=== PATIENT | female | born 1955 | race African-American/Black ===

== ENCOUNTER 2018-03-19 09:03 | Inpatient (IN) | payer MEDICARE ==
[2018-03-19] VITALS (8 sets, daily range): BP systolic 112–132; BP diastolic 55–71; PULSE 59–69; RESP 14–20; TEMP 97.3–98.5; O2SAT 95–100
[~2018-03-19] VITALS: Ht 165.1 cm; Wt 90.7 kg
[2018-03-19] MEDS ORDERED: IODIXANOL 320 MG/ML 10 ML VIAL (for Rad CT) IVCONTRAST ONE (09:10)
[2018-03-19 09:18] LABS: AUTOMATED NEUTROPHIL # 2.1 TH/MM3 (1.8-7.7); BASOPHIL # 0.1 TH/MM3 (0-0.2); BASOPHIL % 1.1 % (0.0-2.0); EOSINOPHIL % 0.3 % (0.0-4.0); HEMATOCRIT 39.3 % (35.0-46.0); LYMPH % 45.6 % (9.0-44.0); LYMPHOCYTE # 2.3 TH/MM3 (1.0-4.8); MEAN CELL VOLUME 93.5 FL (80.0-100.0); MEAN CORPUSCULAR HGB CONC 33.2 % (32.0-36.0); MEAN PLATELET VOLUME 7.2 FL (7.0-11.0); MONO % 10.7 % (0.0-8.0); MONOCYTE # 0.5 TH/MM3 (0-0.9); NEUT % 42.3 % (16.0-70.0); PLATELET COUNT 232 TH/MM3 (150-450); RED CELL DISTRIBUTION WIDTH 12.7 % (11.6-17.2)
--- NOTE | 2018-03-19 09:25 | RADRPT ---
EXAM DATE/TIME: 03/19/2018 09:10 [facility] COMPARISON: No previous studies available for comparison. INDICATIONS : Stroke alert. Aphasia. RADIATION DOSE: 56.47 CTDIvol (mGy) This report was called by Lucretia to Dr. Barkley at 9: 22 MEDICAL HISTORY : Non-responsive. SURGICAL HISTORY : Non-responsive. ENCOUNTER: Initial ACUITY: 1 day PAIN SCALE: 0/10 LOCATION: cranial TECHNIQUE: Multiple contiguous axial images were obtained of the head. Using automated exposure control and adj ustment of the mA and/or kV according to patient size, radiation dose was kept as low as reasonably a chievable to obtain optimal diagnostic quality images. DICOM format image data is available electro nically for review and comparison. FINDINGS: CEREBRUM: The ventricles are normal for age. No evidence of midline shift, mass lesion, hemorrhage or acute in farction. No extra-axial fluid collections are seen. POSTERIOR FOSSA: The cerebellum and brainstem are intact. The 4th ventricle is midline. The cerebellopontine angle i s unremarkable. EXTRACRANIAL: The visualized portion of the orbits is intact. SKULL: The calvaria is intact. No evidence of skull fracture. CONCLUSION: 1. Unremarkable exam. 2. No evidence of acute infarct, hemorrhage, mass or edema. Major Gupta MD on March 19, 2018 at 9:19 Board Certified Radiologist. This report was verified electronically.
[2018-03-19 09:41] LABS: PROTHROMBIN TIME - PATIENT 10.6 SEC (9.8-11.6)
[2018-03-19] MEDS ORDERED: ASPIRIN 325 MG TAB PO ONE (09:45)
--- NOTE | 2018-03-19 09:45 | RADRPT ---
EXAM DATE/TIME: 03/19/2018 09:10 [facility] COMPARISON: CT BRAIN W/O CONTRAST, March 19, 2018, 9:10. INDICATIONS : Stroke alert. Aphasia. IV CONTRAST: 75 cc Visipaque (iodixanol) IV RADIATION DOSE: 43.12 CTDIvol (mGy) ; Combined studies MEDICAL HISTORY : Non-responsive. SURGICAL HISTORY : Non-responsive. ENCOUNTER: Initial ACUITY: 1 day PAIN SCALE: 0/10 LOCATION: TECHNIQUE: Volumetric scanning was performed using a multi-row detector CT scanner. The data was post processed with a variety of visualization algorithms including full volume maximum intensity projection, multi -planar sliding thin slab reformation, curved planar reformation, and surface rendering techniques. Using automated exposure control and adjustment of the mA and/or kV according to patient size, radiat ion dose was kept as low as reasonably achievable to obtain optimal diagnostic quality images. DICO M format image data is available electronically for review and comparison. FINDINGS: There is excellent visualization of the major intracranial arteries out to the second-order branch ve ssels. There is no evidence for aneurysm, vessel truncation or stenosis, and no evidence for vascula r malformation. No discrete vascular occlusion to serve as target for catheter directed stroke therapy. CONCLUSION: Normal examination. Jeremy Sheldon MD on March 19, 2018 at 9:38 Board Certified Radiologist. This report was verified electronically.
[2018-03-19] MEDS ORDERED: LEVO.125 PO (09:51)
[2018-03-19] MEDS ORDERED: ASPI81CH6 CHEW (09:51)
[2018-03-19] MEDS ORDERED: MULT1TAB46 PO (09:51)
[2018-03-19] MEDS ORDERED: CALCTAB80 PO (09:51)
[2018-03-19] MEDS: SODIUM CHLOR 0.9% 1000 ML INJ 1,000 ML IV SCH ×2 (10:00→14:02)
[2018-03-19 10:01] LABS: CALCIUM 9.2 MG/DL (8.5-10.1); CHLORIDE 108 MEQ/L (98-107); SODIUM (NA) 143 MEQ/L (136-145)
[2018-03-19 10:02] LABS: BICARBONATE 31.6 MEQ/L (21.0-32.0); BLOOD UREA NITROGEN 10 MG/DL (7-18); GLUCOSE,RANDOM 85 MG/DL (74-106)
[2018-03-19 10:05] LABS: CREATININE 0.74 MG/DL (0.50-1.00); GLOMERULAR FILTRATION RATE 80 ML/MIN (>89)
--- NOTE | 2018-03-19 10:10 | PD ---
HPI Chief Complaint: Stroke Alert Time Seen by Provider: 09:07 Travel History International Travel<30 days: No Contact w/Intl Traveler<30days: No Traveled to known affect area: No History of Present Illness HPI This 62-year-old female arrives by private vehicle. She had woken up this morning and says she was okay when she got up. She let the dogs out and then went to eat and noticed that she was dropping things and was very clumsy. She called her son who went to her house immediately and picked her up and brought her to the emergency room. He says that she was weak and needed to be supported on the way here. She is not complaining of headache. Initially she is unable to talk to later she has regained her speech and is able to give some history. She has never had a stroke. She was well when she woke up this morning. She does take 81 mg of aspirin daily. She does take Synthroid. She has a history of back surgery and bilateral knee surgery. PFSH Past Medical History Thyroid Disease: Yes (Hypo- ) Tetanus Vaccination: Unknown Influenza Vaccination: Yes ?: Not Menopausal: Yes Past Surgical History Abdominal Surgery: Yes (Gastric bypass ) Hysterectomy: Yes Joint Replacement: Yes (BL knees) Other Surgery: Yes (Skin graft shoulder, thyroidectomy ) Social History Alcohol Use: Yes (Occ.) Tobacco Use: No Substance Use: No Allergies-Medications (Allergen,Severity, Reaction): Coded Allergies: No Known Drug Allergies (Verified Allergy, Severe, 03/19/18) Reported Meds & Prescriptions Reported Meds & Active Scripts Active Reported Calcium 1000 + D (Calcium Carbonate-Cholecalciferol) 1,000-800 Mg-Unit Tab 1 Tab PO DAILY Multi Vitamin Daily (Multiple Vitamin) 1 Tab Tab 1 Tab PO DAILY Aspirin Low Dose (Aspirin) 81 Mg Chew 81 Mg CHEW DAILY Synthroid (Levothyroxine Sodium) 125 Mcg Tab 125 Mcg PO DAILY Review of Systems ROS Limitations: Speech Impaired Physical Exam Narrative GENERAL: Well-developed female SKIN: Focused skin assessment warm/dry. HEAD: Atraumatic. Normocephalic. EYES: Pupils equal and round. No scleral icterus. No injection or drainage. ENT: No nasal bleeding or discharge. Mucous membranes pink and moist. NECK: Trachea midline. No JVD. CARDIOVASCULAR: Regular rate and rhythm. No murmur appreciated. RESPIRATORY: No accessory muscle use. Clear to auscultation. Breath sounds equal bilaterally. GASTROINTESTINAL: Abdomen soft, non-tender, nondistended. Hepatic and splenic margins not palpable. MUSCULOSKELETAL: No obvious deformities. No clubbing. No cyanosis. No edema. NEUROLOGICAL: Awake and alert. No obvious cranial nerve deficits. Motor grossly within normal limits. On arrival the patient has no speech. She appears to understand well but is unable to express herself at all. She does make unintelligible noises. There is question of some left-sided weakness of the extremities but this was not consistently reproducible. PSYCHIATRIC: Not testable Data Data Last Documented VS Vital Signs Date Time Temp Pulse Resp B/P (MAP) Pulse Ox O2 Delivery O2 Flow Rate FiO2 03/19/18 09:05 98.5 62 14 130/63 (85) 100 Orders Orders Cath For Specimen (03/19/18 09:09) Neuro Checks Q2HX12,Q4H (03/19/18 09:09) Nursing Bedside Swallow Assess .ONCE (03/19/18 09:09) Activity Bed Rest (03/19/18 09:09) Diet Npo (03/19/18 Breakfast) Prothrombin Time / Inr (Pt) (03/19/18 09:09) Act Partial Throm Time (Ptt) (03/19/18 09:09) Complete Blood Count With Diff (03/19/18 09:09) Basic Metabolic Panel (Bmp) (03/19/18 09:09) Fibrinogen (03/19/18 09:09) Creatine Kinase (Cpk) (03/19/18 09:09) Troponin I (03/19/18 09:09) Ua Includes Microscopic (03/19/18 09:09) Drug Screen, Random Urine (03/19/18 09:09) Type And Screen (03/19/18 09:09) Ct Brain W/O Iv Contrast(Rout) (03/19/18 ) Cta Brain W Iv Contrast W 3d (03/19/18 09:09) Cta Neck W Iv Contrast W 3d (03/19/18 09:09) Electrocardiogram (03/19/18 ) Beta Hcg (Quant/Titer) (03/19/18 09:09) Consult Neurology (03/19/18 09:09) Blood Glucose (03/19/18 09:09) Ecg Monitoring (03/19/18 09:09) Iv Access Insert/Monitor (03/19/18 09:09) NPO (03/19/18 09:09) Oximetry (03/19/18 09:09) Resp Oxygen Nc Stroke (03/19/18 ) I-Stat Profile (03/19/18 09:10) Aspirin (Aspirin) (03/19/18 09:45) (Hub Use Only)Inp Phy Cons/Ref (03/19/18 ) [place] Sedimentation Rate (03/19/18 09:50) Rapid Plasma Regin (Rpr) W Ttr (03/19/18 09:50) [place] Screen (03/19/18 09:50) Thyroid Stimulating Hormone (03/19/18 09:50) Free Thyroxine (T4) (03/19/18 09:50) Protein Electrophoresis Serum (03/19/18 09:50) Vitamin B1 (Thiamine) (03/19/18 09:50) Vitamin B12 (03/19/18 09:50) Vitamin B6 (03/19/18 09:50) Urinalysis - C+S If Indicated (03/19/18 09:50) C-Reactive Protein (Crp) (03/19/18 09:50) Methylmalonic Acid (Mma) (03/19/18 09:50) Ast (Sgot) (03/19/18 09:50) Alt (Sgpt) (03/19/18 09:50) Mri Brain W&W/O Contrast (03/19/18 09:50) Eeg Study (03/19/18 09:50) Echo 2d Comp With Doppler (03/19/18 09:50) Holter Monitor Recording (03/19/18 09:50) Quarter Doper / Telemetry ISAAC.Q8H (03/19/18 09:50) ^ Seizure Precautions (03/19/18 09:50) [place] (03/19/18 09:50) ^ Other Nursing Orders (03/19/18 09:50) Clopidogrel (Plavix) (03/19/18 10:00) Aspirin Ec (Ecotrin Ec) (03/19/18 10:00) Sodium Chlor 0.9% 1000 Ml Inj (Ns 1000 M (03/19/18 09:50) Lipid Profile (03/19/18 09:50) Drug Screen, Random Urine (03/19/18 09:50) Folate, Serum (03/19/18 09:50) Scd&Teds Bilateral/Knee High ISAAC.QSHIFT (03/19/18 09:50) Labs Laboratory Tests Test 03/19/18 09:10 White Blood Count 5.0 TH/MM3 Red Blood Count 4.20 MIL/MM3 Hemoglobin 13.0 GM/DL Bedside Hemoglobin G/DL Hematocrit 39.3 % Bedside Hematocrit % Mean Corpuscular Volume 93.5 FL Mean Corpuscular Hemoglobin 31.0 PG Mean Corpuscular Hemoglobin Concent 33.2 % Red Cell Distribution Width 12.7 % Platelet Count 232 TH/MM3 Mean Platelet Volume 7.2 FL Neutrophils (%) (Auto) 42.3 % Lymphocytes (%) (Auto) 45.6 % Monocytes (%) (Auto) 10.7 % Eosinophils (%) (Auto) 0.3 % Basophils (%) (Auto) 1.1 % Neutrophils # (Auto) 2.1 TH/MM3 Lymphocytes # (Auto) 2.3 TH/MM3 Monocytes # (Auto) 0.5 TH/MM3 Eosinophils # (Auto) 0.0 TH/MM3 Basophils # (Auto) 0.1 TH/MM3 CBC Comment DIFF FINAL Differential Comment Prothrombin Time 10.6 SEC Prothromb Time International Ratio 1.0 RATIO Activated Partial Thromboplast Time 26.8 SEC Bedside Sodium 141 MMOL/L Blood Urea Nitrogen 10 MG/DL Random Glucose 85 MG/DL Calcium Level 9.2 MG/DL Sodium Level 143 MEQ/L Potassium Level 3.9 MEQ/L Chloride Level 108 MEQ/L Carbon Dioxide Level 31.6 MEQ/L Bedside Potassium 3.9 MMOL/L Bedside Chloride 103 MMOL/L Anion Gap 3 MEQ/L Bedside Blood Urea Nitrogen 9 MG/DL Bedside Creatinine 0.8 MG/DL Bedside Glucose 80 MG/DL [facility] Medical Decision Making Medical Screen Exam Complete: Yes Emergency Medical Condition: Yes Medical Record Reviewed: Yes Differential Diagnosis Differential includes acute stroke, CVA, TIA, altered mental status Narrative Course Patient was declared a stroke alert and was taken immediately scanning or CT and CTA. CT has been read as negative. CTA of the brain is read as normal. CTA of the carotids is pending. On returning from CAT scan being the patient has regained her speech. Her speech at this time is quite fluent. She is oriented. Repeat examination does not show any deficits. It appears this may be a transient ischemic attack. Dr. Ash has come to see the patient. She has improved considerably so is not a candidate for TPA. She has been given aspirin. She will be admitted Diagnosis Primary Impression: Transient ischemic attack (TIA) Higinio Barkley MD March 19, 2018 10:10
[2018-03-19 10:16] LABS: BILIRUBIN, URINE NEG (NEG); BLOOD, URINE NEG (NEG); GLUCOSE,URINE NEG (NEG); KETONE, URINE NEG (NEG); NITRITE,URINE NEG (NEG); URINE COLOR YELLOW (YELLW/STRAW); URINE LEUKOCYTE ESTERASE NEG (NEG)
[2018-03-19 10:19] LABS: TROPONIN I LESS THAN 0.02 NG/ML (0.02-0.05)
[2018-03-19] MEDS: CLOPIDOGREL 75 MG TAB PO SCH (10:20)
--- NOTE | 2018-03-19 10:20 | RADRPT ---
EXAM DATE/TIME: 03/19/2018 09:10 [facility] COMPARISON: No previous studies available for comparison. INDICATIONS : Stroke alert. Aphasia. IV CONTRAST: 75 cc Visipaque (iodixanol) IV RADIATION DOSE: 43.12 CTDIvol (mGy) ; Combined studies MEDICAL HISTORY : Non-responsive. SURGICAL HISTORY : Non-responsive. ENCOUNTER: Initial ACUITY: 1 day PAIN SCALE: 0/10 LOCATION: neck Elevated flow velocities and ICA/CCA ratios have been found to correlate with increased degrees of vessel stenosis, calculated as percentage of diameter relative to a normal segment of distal ICA/CCA. TECHNIQUE: Volumetric scanning was performed using a multirow detector CT scanner. The data was post processed with a variety of visualization algorithms including full-volume maximum intensity projection, multip lanar sliding thin-slab reformation, curved-planar reformation, and surface-rendering techniques. Us ing automated exposure control and adjustment of the mA and/or kV according to patient size, radiatio n dose was kept as low as reasonably achievable to obtain optimal diagnostic quality images. DICOM f ormat image data is available electronically for review and comparison. FINDINGS: AORTIC ARCH: Truncus arch anatomy. Arch vessels appear widely patent. RIGHT CAROTID: The common carotid artery is intact. The carotid bulb has a normal configuration without ulceration o r narrowing. The internal carotid artery lumen is smooth without stenosis. The external carotid francesco ry is intact. LEFT CAROTID: The common carotid artery is intact. The carotid bulb has a normal configuration without ulceration or narrowing. The internal carotid artery lumen is smooth without stenosis. The external carotid ar yuni is intact. VERTEBRALS: The vertebral arteries have a symmetric diameter. No stenotic lesions are seen. CONCLUSION: Normal examination. Jeremy Sheldon MD on March 19, 2018 at 10:06 Board Certified Radiologist. This report was verified electronically.
--- NOTE | 2018-03-19 10:22 | MB ---
cc: Dragan Ash MD DATE: 03/19/2018 HISTORY OF PRESENT ILLNESS: A 62-year-old right-handed woman called as a stroke alert with a history of hypothyroidism, gastric sleeve. She does take 81 mg of aspirin every day, although not this morning and she got up around 05:30, let the dogs out, was doing well, but at about 8 o'clock this morning, she noted that she could not talk well. She felt like she was drooling on the right side of her mouth, kept dropping a plate. She came into the ER and was found to be unable to talk, just grunt, but that has improved greatly since being here. SOCIAL HISTORY: Not a smoker, occasionally has a drink, lives by herself. FAMILY HISTORY: Negative for cancer, seizure or stroke. REVIEW OF SYSTEMS: According to her and her son, no history of hypertension, diabetes, hypercholesterolemia, chest pain, palpitations, headache, VA, CABG, stent, angioplasty, AFib, Coumadin, renal, hepatic or pulmonary disease, lupus, ulcer, cancer, seizure, prior stroke. No odd smells, taste, dj vu. Not woken up, wet the bed or bit her tongue. Never been in this hospital before. PHYSICAL EXAMINATION: VITAL SIGNS: On exam, 62, 150/80, sinus rhythm. NECK: No carotid bruits. HEART: Regular rhythm. I did not detect a murmur. NEUROLOGIC: Pupils are equal. Visual ramos are full. Extraocular movements intact. There was a few beats of nystagmus looking to the right, very slight. Tongue was midline. There is no drift. She had normal strength in upper and lower extremities bilaterally including triceps, finger extensors. movements were normal. Iliopsoas tibialis anterior. DTRs are trace throughout. Toes downgoing bilaterally. Pinprick was slightly diminished on the right face, arm, and leg compared to the left, but she could discriminate dull from sharp there. She is not ataxic on [id number] or [id number]. She had normal, naming, calculations, repetition, reading. She is not currently aphasic. She follows commands well. She showed me her left thumb well. LABORATORY DATA: CBC is normal. Coags are normal. Sodium normal. Creatinine and BUN normal. CAT scan of the brain read as normal. Review of the films normal. She had a CTA of her neck and [place] of [place]. I still do not have the results called, although the report on the head CTA is normal. Preliminary review of the neck CTA, I do not see any significant carotid stenosis and internal carotid artery is a little bit tortuous bilaterally, but symmetric. Vertebral arteries appear to be a bit small bilaterally, but symmetric, basilar artery is intact. ASSESSMENT AND PLAN: Possibly a TIA, that is what it looks like here. Will put her on Plavix. Give her 325 of aspirin. Do an echo and a Holter and MRI of the brain. Some additional blood work. I will be following her with you in the hospital. She has some slight numbness on the right side. NIH stroke score of 1. She has minimal deficit markedly improving, and as such was not given TPA. MD TEMI Esposito/PRIMITIVO , 09:54 AM , 10:21 AM
[2018-03-19 10:28] LABS: SQUAMOUS EPITHELIAL CELL URINE 0-5 /hpf (0-5)
[2018-03-19] MEDS ORDERED: ACETAMINOPHEN 325 MG TAB PO PRN (10:30)
[2018-03-19] MEDS ORDERED: MAGNESIUM HYDROXIDE SUSP 30 ML CUP PO PRN (10:30)
[2018-03-19] MEDS ORDERED: NALOXONE HCL 0.4 MG/ML AMP IV PUSH PRN (10:30)
[2018-03-19] MEDS ORDERED: ONDANSETRON HCL 4 MG/2 ML VIAL IVP PRN (10:30)
[2018-03-19] MEDS ORDERED: SENNOSIDES 8.6 MG TAB PO PRN (10:30)
[2018-03-19] MEDS ORDERED: SODIUM CHLORIDE 0.9% FLUSH 10 ML FLUSH IV FLUSH PRN (10:30)
[2018-03-19] MEDS ORDERED: BISACODYL 10 MG SUPP RECTAL PRN (10:30)
[2018-03-19 10:53] LABS: ALT (GPT) 30 U/L (10-53); C-REACTIVE PROTEIN LESS THAN 0.29 MG/DL (0.00-0.30)
[2018-03-19 10:54] LABS: AST (GOT) 20 U/L (15-37)
--- NOTE | 2018-03-19 11:52 | EKG ---
Date Performed: 03/19/2018 Time Performed: 09:53:45 PTAGE: 62 years EKG: Sinus rhythm NORMAL ECG NO PREVIOUS TRACING DOCTOR: Augusto Solis Interpretating Date/Time 03/19/2018 11:51:14
[2018-03-19] MEDS: CALCIUM/VITAMIN D 250 MG/125 U TAB PO SCH (12:00)
--- NOTE | 2018-03-19 12:12 | HHI.HP ---
HPI Service [facility] Primary Care Physician Non-Staff Admission Diagnosis TRANSIENT ISCHEMIC ATTACK Diagnoses: (1) Transient ischemic attack (TIA) Chief Complaint: Slurring of speech Travel History International Travel<30 Days: No Contact w/Intl Traveler <30 Da: No Traveled to Known Affected Are: No History of Present Illness This is a pleasant 62-year-old female patient with a known medical history of thyroid disease who presented to the ED with slurring of speech and overall generally feeling "not herself". Patient states that around 8:00 this morning she was having her coffee, actually took a Motrin for complaints of left elbow arthritis aching and shortly after she noticed her speech slurred and drooling on the right side of her mouth. Patient also admits that she kept losing ability to grasp her plate and kept dropping it. Patient called her son to immediately bring her to the ED. Stroke alert was called, neurology at bedside to assess patient. CT was performed and shortly after coming back from CT all symptoms resolved. Patient denies ever having these type of symptoms before. Denies history of hypertension, diabetes or hyperlipidemia. Patient has been relatively healthy, denies any illness including fever, chills, cough, shortness of breath, headache, abdominal pain, nausea, vomiting, diarrhea, dysuria or lightheadedness or dizziness. Review of Systems Constitutional: DENIES: Diaphoretic episodes, Fever, Chills Eyes: DENIES: Blurred vision, Diplopia, Eye pain, Vision loss, Double Vision Ears, nose, mouth, throat: DENIES: Oral lesions Respiratory: DENIES: Cough, Sputum production, Shortness of breath Cardiovascular: DENIES: Chest pain, Palpitations Gastrointestinal: DENIES: Abdominal pain, Black stools, Bloody stools, Constipation, Diarrhea, Nausea, Vomiting Musculoskeletal: DENIES: Joint pain Hematologic/lymphatic: DENIES: Bruising Immunologic/allergic: DENIES: Eczema Neurologic: COMPLAINS OF: Speech Problems Psychiatric: COMPLAINS OF: Anxiety Except as stated in HPI: all other systems reviewed are Neg Past Family Social History Past Medical History Hypothyroidism Past Surgical History Gastric sleeve Hysterectomy Thyroidectomy Bilateral knee replacement Unspecified back surgery with darcie and screw placement Bilateral breast reduction Reported Medications Active Reported Calcium 1000 + D (Calcium Carbonate-Cholecalciferol) 1,000-800 Mg-Unit Tab 1 Tab PO DAILY Multi Vitamin Daily (Multiple Vitamin) 1 Tab Tab 1 Tab PO DAILY Aspirin Low Dose (Aspirin) 81 Mg Chew 81 Mg CHEW DAILY Synthroid (Levothyroxine Sodium) 125 Mcg Tab 125 Mcg PO DAILY Allergies: Coded Allergies: No Known Drug Allergies (Verified Allergy, Severe, 03/19/18) Active Ordered Medications Current Medications Medications (Trade) Dose Ordered Sig/Gogo Route Start Time Stop Time Status Last Admin (Plavix) 75 mg DAILY PO 03/19/18 10:00 03/19/18 10:20 (Ecotrin Ec) 325 mg DAILY PO 03/20/18 09:00 Sodium Chloride 1,000 ml @ 75 mls/hr [id number] IV 03/19/18 10:00 03/19/18 10:00 (NS Flush) 2 ml UNSCH PRN IV FLUSH 03/19/18 10:30 (NS Flush) 2 ml BID IV FLUSH 03/19/18 21:00 (Tylenol) 650 mg Q4H PRN PO 03/19/18 10:30 (Zofran Inj) 4 mg Q6H PRN IVP 03/19/18 10:30 (Narcan Inj) 0.4 mg UNSCH PRN IV PUSH 03/19/18 10:30 (Nancy-Colace) 1 tab BID PO 03/19/18 21:00 (Milk Of Magnesia Liq) 30 ml Q12H PRN PO 03/19/18 10:30 (Senokot) 17.2 mg Q12H PRN PO 03/19/18 10:30 (Dulcolax Supp) 10 mg DAILY PRN RECTAL 03/19/18 10:30 (Synthroid) 125 mcg DAILY@0600 PO 03/20/18 09:00 (Oscal-D 250-125) 1,000 mg DAILY PO 03/19/18 12:00 Non-Formulary Medication 1 tab DAILY PO 03/20/18 09:00 Family History Paternal medical history significant for bladder cancer. Mother has dementia and is in a fdc. Social History Patient denies any current or previous tobacco abuse. Admits to occasional alcohol use. Denies any illicit drug use. Physical Exam Vital Signs Vital Signs Date Time Temp Pulse Resp B/P (MAP) Pulse Ox O2 Delivery O2 Flow Rate FiO2 03/19/18 11:25 03/19/18 10:45 64 14 132/60 (84) 100 Room Air 03/19/18 09:05 98.5 62 14 130/63 (85) 100 03/19/18 09:05 100 Room Air 03/19/18 09:05 100 Room Air Physical Exam GENERAL: Well-developed, well-nourished patient in NAD. Lying in bed comfortably. Speech is clear. SKIN: Warm and dry. No rash. HEAD: Normocephalic. Atraumatic. EYES: Pupils equal and round. No scleral icterus. No injection or drainage. ENT: No nasal bleeding or discharge. Mucous membranes pink and moist. NECK: Supple. Trachea midline. CARDIOVASCULAR: Regular rate and rhythm. S1, S2 noted. No murmur appreciated. RESPIRATORY: No accessory muscle use. Clear to auscultation. Breath sounds equal bilaterally. GASTROINTESTINAL: Abdomen soft, non-tender, nondistended. Normoactive bowel sounds x4. MUSCULOSKELETAL: No obvious deformities. Extremities without clubbing, cyanosis , or edema. NEUROLOGICAL: Awake and alert. No obvious cranial nerve deficits. Motor grossly within normal limits. 5/5 muscle strength in bilateral upper and lower extremities. Normal speech. PSYCHIATRIC: Appropriate mood and affect; insight and judgment normal. Laboratory Laboratory Tests Test 03/19/18 09:10 03/19/18 10:10 03/19/18 10:50 White Blood Count 5.0 Red Blood Count 4.20 Hemoglobin 13.0 Bedside Hemoglobin Hematocrit 39.3 Bedside Hematocrit Mean Corpuscular Volume 93.5 Mean Corpuscular Hemoglobin 31.0 Mean Corpuscular Hemoglobin Concent 33.2 Red Cell Distribution Width 12.7 Platelet Count 232 Mean Platelet Volume 7.2 Neutrophils (%) (Auto) 42.3 Lymphocytes (%) (Auto) 45.6 Monocytes (%) (Auto) 10.7 Eosinophils (%) (Auto) 0.3 Basophils (%) (Auto) 1.1 Neutrophils # (Auto) 2.1 Lymphocytes # (Auto) 2.3 Monocytes # (Auto) 0.5 Eosinophils # (Auto) 0.0 Basophils # (Auto) 0.1 CBC Comment DIFF FINAL Differential Comment Erythrocyte Sedimentation Rate 6 Prothrombin Time 10.6 Prothromb Time International Ratio 1.0 Activated Partial Thromboplast Time 26.8 Fibrinogen 253 Bedside Sodium 141 Blood Urea Nitrogen 10 Creatinine 0.74 Random Glucose 85 Calcium Level 9.2 Sodium Level 143 Potassium Level 3.9 Chloride Level 108 Carbon Dioxide Level 31.6 Bedside Potassium 3.9 Bedside Chloride 103 Anion Gap 3 Bedside Blood Urea Nitrogen 9 Bedside Creatinine 0.8 Estimat Glomerular Filtration Rate 80 Bedside Glucose 80 Aspartate Amino Transf (AST/SGOT) 20 Alanine Aminotransferase (ALT/SGPT) 30 Total Creatine Kinase 109 Troponin I LESS THAN 0.02 C-Reactive Protein LESS THAN 0.29 Thyroid Stimulating Hormone 3rd Gen 0.193 Human Chorionic Gonadotropin, Quant 3 Urine Collection Type CATH Urine Color YELLOW Urine Turbidity CLEAR Urine pH 7.0 Urine Specific [place] LESS/EQUAL 1.005 Urine Protein NEG Urine Glucose (UA) NEG Urine Ketones NEG Urine Occult Blood NEG Urine Nitrite NEG Urine Bilirubin NEG Urine Urobilinogen 0.2 Urine Leukocyte Esterase NEG Urine Squamous Epithelial Cells 0-5 Urine Opiates Screen NEG Urine Barbiturates Screen NEG Urine Amphetamines Screen NEG Urine Benzodiazepines Screen NEG Urine Cocaine Screen NEG Urine Cannabinoids Screen NEG Result Diagram: 03/19/1810 03/19/18909 Imaging Last Impressions Brain MRI 03/19/18 0950 Signed Impressions: Service Date/Time: Monday, March 19, 2018 11:54 - CONCLUSION: Focal abnormal signal involving an isolated low convexity left frontal gyrus. This could reflect focal cerebritis or late subacute ischemic injury. Jeremy Sheldon MD Neck CTA 03/19/18 0909 Signed Impressions: Service Date/Time: Monday, March 19, 2018 09:10 - CONCLUSION: Normal examination. Jeremy Sheldon MD Head CTA 03/19/18 0909 Signed Impressions: Service Date/Time: Monday, March 19, 2018 09:10 - CONCLUSION: Normal examination. Jeremy Sheldon MD Head CT 03/19/18 0000 Signed Impressions: Service Date/Time: Monday, March 19, 2018 09:10 - CONCLUSION: 1. Unremarkable exam. 2. No evidence of acute infarct, hemorrhage, mass or edema. Major Gupta MD Septic Shock Reassessment Septic shock perfusion: reassessment completed Caprini VTE Risk Assessment Caprini VTE Risk Assessment: Mod/High Risk (score >= 2) Caprini Risk Assessment Model Point Value = 1 Point Value = 2 Point Value = 3 Point Value = 5 Age 41-60 Minor surgery BMI > 25 kg/m2 Swollen legs Varicose veins or History of unexplained or recurrent spontaneous Oral contraceptives or hormone replacement Sepsis (< 1 month) Serious lung disease, including pneumonia (< 1 month) Abnormal pulmonary function Acute myocardial infarction Congestive heart failure (< 1 month) History of inflammatory bowel disease Medical patient at bed rest Age 61-74 Arthroscopic surgery Major open surgery (> 45 min) Laparoscopic surgery (> 45 min) Malignancy Confined to bed (> 72 hours) Immobilizing plaster cast Central venous access Age >= 75 History of VTE Family history of VTE Factor V Leiden Prothrombin [id number] Lupus anticoagulant Anticardiolipin antibodies Elevated serum homocysteine Heparin-induced thrombocytopenia Other congenital or acquired thrombophilia Stroke (< 1 month) Elective arthroplasty Hip, pelvis, or leg fracture Acute spinal cord injury (< 1 month) Prophylaxis Regimen Total Risk Factor Score Risk Level Prophylaxis Regimen 0-1 Low Early ambulation 2 Moderate Order ONE of the following: *Sequential Compression Device (SCD) *Heparin 5000 units SQ BID 3-4 Higher Order ONE of the following medications: *Heparin 5000 units SQ TID *Enoxaparin/Lovenox 40 mg SQ daily (WT < 150 kg, CrCl > 30 mL/min) *Enoxaparin/Lovenox 30 mg SQ daily (WT < 150 kg, CrCl > 10-29 mL/min) *Enoxaparin/Lovenox 30 mg SQ BID (WT < 150 kg, CrCl > 30 mL/min) AND/OR *Sequential Compression Device (SCD) 5 or more Highest Order ONE of the following medications: *Heparin 5000 units SQ TID (Preferred with Epidurals) *Enoxaparin/Lovenox 40 mg SQ daily (WT < 150 kg, CrCl > 30 mL/min) *Enoxaparin/Lovenox 30 mg SQ daily (WT < 150 kg, CrCl > 10-29 mL/min) *Enoxaparin/Lovenox 30 mg SQ BID (WT < 150 kg, CrCl > 30 mL/min) AND *Sequential Compression Device (SCD) Assessment and Plan Problem List: (1) Transient ischemic attack (TIA) ICD Code: G45.9 - Transient cerebral ischemic attack, unspecified Status: Acute Assessment and Plan This is a pleasant 62-year-old female patient with a known medical history of thyroid disease who presented to the ED with slurring of speech and overall generally feeling "not herself". Patient states that around 8:00 this morning she was having her coffee, actually took a Motrin for complaints of left elbow arthritis aching and shortly after she noticed her speech slurred and drooling on the right side of her mouth. Rule out CVA versus TIA patient presented with dysarthria and right upper extremity weakness - Consult placed to neurology, seen patient, appreciate input and recommendations. - CT scan of the brain normal. MRI of the brain ordered showing focal abnormal signal involving an isolated low convexity left frontal gyrus. Could reflect focal sensory brain tinnitus or late subacute ischemic injury. - Head and neck CT negative. - Lipid panel added. Neuro ordered lab work, follow. - UA negative. Tox negative. BMP and CBC reviewed, essentially unremarkable. CRP and ESR negative. - Echocardiogram ordered, pending. Follow. - We will place on aspirin as well as Plavix. - Continue cardiac telemetry, monitor for any arrhythmias. - Continue neuro checks. Continue bedrest for now. - Speech therapy evaluation ordered. Nursing to perform bedside swallow eval. - Physical and occupational therapy ordered, appreciate recommendations. - All symptoms resolved, will continue to monitor. Supportive care. Hypothyroidism, chronic: Will continue home levothyroxine. TSH decreased, waiting T4. DVT prophylaxis: SCDs. Physician Certification 2 Midnight Certification Type: Admission for Inpatient Services Order for Inpatient Services The services are ordered in accordance with Medicare regulations or non- Medicare payer requirements, as applicable. In the case of services not specified as inpatient-only, they are appropriately provided as inpatient services in accordance with the 2-midnight benchmark. Estimated LOS (days): 3 3 days is the estimated time the patient will need to remain in the hospital, assuming treatment plan goals are met and no additional complications. Post-Hospital Plan: Home Ani Reece March 19, 2018 12:12
[2018-03-19] MEDS ORDERED: GADODIAMIDE PF 287 MG/ML 5 ML VIAL (for RAD MRI) IV PUSH ONE (12:18)
--- NOTE | 2018-03-19 12:44 | RADRPT ---
EXAM DATE/TIME: 03/19/2018 11:54 [facility] COMPARISON: No previous studies available for comparison. INDICATIONS : Stroke alert. Right sided weakness. CONTRAST: 15 cc Omniscan (gadodiamide) IV MEDICAL HISTORY : Hypothyroidism. SURGICAL HISTORY : Total knee replacement, right. Total knee replacement, left. Fusion, lumbar. ENCOUNTER: Initial ACUITY: 1 day PAIN SCORE: 0/10 LOCATION: head TECHNIQUE: Multiplanar, multisequence MRI of the brain was performed both prior to and following the administrat ion of paramagnetic contrast. FINDINGS: There is focal T2 prolongation involving one of the prefrontal gyri on the left side at the low conve xity level. There are scattered punctate areas of white matter T2 prolongation. There is no evidence of intracranial mass or hemorrhage. There is nothing to suggest acute infarction. There is no abnorma l parenchymal or meningeal enhancement identified. Normal enhancement is present in intracranial vasc ular structures. The extracranial structures are grossly benign and intact. CONCLUSION: Focal abnormal signal involving an isolated low convexity left frontal gyrus. This could reflect foca l cerebritis or late subacute ischemic injury. Jeremy Sheldon MD on March 19, 2018 at 12:36 Board Certified Radiologist. This report was verified electronically.
[2018-03-19 12:50] LABS: CHOLESTEROL 198 MG/DL (120-200); TRIGLYCERIDES 73 MG/DL (42-150)
[2018-03-19 13:16] LABS: CHOLESTEROL/ HDL RATIO 2.57 RATIO; FREE T4 1.33 NG/DL (0.76-1.46); HDL CHOLESTEROL 76.9 MG/DL (40.0-60.0); LDL CHOLESTEROL 107 MG/DL (0-99)
[2018-03-19] MEDS: SODIUM CHLORIDE 0.9% FLUSH 10 ML FLUSH IV FLUSH SCH (19:52)
[2018-03-19] MEDS: DOCUSATE SODIUM 50 MG/SENNA 8.6 MG TAB PO SCH (19:52)
[2018-03-19] MEDS ORDERED: ATORVASTATIN 40 MG TAB PO SCH (22:00)
[2018-03-20 00:28] VITALS: BP 96/52; PULSE 63; RESP 20; TEMP 95.7; O2SAT 98
[2018-03-20 04:00] VITALS: BP 114/57; PULSE 80; RESP 20; TEMP 96.6; O2SAT 98
[2018-03-20 04:04] VITALS: BP 114/57; PULSE 80; RESP 20; TEMP 96.6; O2SAT 98
[2018-03-20 06:40] LABS: AUTOMATED NEUTROPHIL # 2.1 TH/MM3 (1.8-7.7); BASOPHIL # 0.1 TH/MM3 (0-0.2); BASOPHIL % 1.3 % (0.0-2.0); EOSINOPHIL % 0.7 % (0.0-4.0); HEMATOCRIT 38.1 % (35.0-46.0); HEMOGLOBIN 12.7 GM/DL (11.6-15.3); LYMPH % 45.7 % (9.0-44.0); MEAN CORPUSCULAR HEMOGLOBIN 31.1 PG (27.0-34.0); MEAN CORPUSCULAR HGB CONC 33.5 % (32.0-36.0); MEAN PLATELET VOLUME 7.6 FL (7.0-11.0); MONO % 5.7 % (0.0-8.0); MONOCYTE # 0.3 TH/MM3 (0-0.9); NEUT % 46.6 % (16.0-70.0); PLATELET COUNT 216 TH/MM3 (150-450); RED CELL DISTRIBUTION WIDTH 12.6 % (11.6-17.2); WHITE BLOOD COUNT 4.5 TH/MM3 (4.0-11.0)
[2018-03-20 06:56] LABS: BICARBONATE 29.9 MEQ/L (21.0-32.0); CALCIUM 8.8 MG/DL (8.5-10.1)
[2018-03-20 07:00] LABS: CREATININE 0.65 MG/DL (0.50-1.00)
[2018-03-20] MEDS: SODIUM CHLOR 0.9% 1000 ML INJ 1,000 ML IV SCH (07:00)
[2018-03-20 07:09] VITALS: PULSE 59
[2018-03-20 08:00] VITALS: BP 132/61; PULSE 61; RESP 19; TEMP 96.9; O2SAT 100
--- NOTE | 2018-03-20 08:06 | HHI.PR ---
Subjective Remarks sr Objective Vital Signs Date Time Temp Pulse Resp B/P (MAP) Pulse Ox O2 Delivery O2 Flow Rate FiO2 03/20/18 07:09 59 03/20/18 04:04 96.6 80 20 114/57 (76) 98 03/20/18 04:00 96.6 80 20 114/57 (76) 98 03/20/18 00:28 95.7 63 20 96/52 (67) 98 03/19/18 20:39 97 21 03/19/18 20:30 97.3 69 20 121/60 (80) 98 03/19/18 20:16 65 03/19/18 16:29 97.4 59 19 112/55 (74) 95 03/19/18 16:00 97.4 59 19 112/55 (74) 95 03/19/18 12:00 97.5 67 20 130/71 (90) 100 03/19/18 11:25 03/19/18 10:45 64 14 132/60 (84) 100 Room Air 03/19/18 09:05 98.5 62 14 130/63 (85) 100 03/19/18 09:05 100 Room Air 03/19/18 09:05 100 Room Air I/O 03/19/18 03/19/18 03/19/18 03/20/18 03/20/18 03/20/18 07:00 15:00 23:00 07:00 15:00 23:00 Intake Total 1480 ml Balance 1480 ml Intake Oral 480 ml IV Total 1000 ml # Voids 1 1 1 Result Diagram: 03/20/18 0620 03/20/18 0620 Objective Remarks acc to nurse nl Assessment and Plan Assessment and Plan 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
[2018-03-20] MEDS ORDERED: MULTIVITAMIN TAB PO SCH (09:00)
[2018-03-20] MEDS ORDERED: LEVOTHYROXINE SODIUM 125 MCG TAB PO SCH (09:00)
[2018-03-20] MEDS: SODIUM CHLORIDE 0.9% FLUSH 10 ML FLUSH IV FLUSH SCH (09:00)
[2018-03-20] MEDS ORDERED: ASPIRIN EC 325 MG TABEC PO SCH (09:00)
[2018-03-20] MEDS: CALCIUM/VITAMIN D 250 MG/125 U TAB PO SCH (09:13)
[2018-03-20] MEDS: CLOPIDOGREL 75 MG TAB PO SCH (09:15)
[2018-03-20] MEDS: DOCUSATE SODIUM 50 MG/SENNA 8.6 MG TAB PO SCH (09:15)
[2018-03-20 12:00] VITALS: BP 124/67; PULSE 61; RESP 19; TEMP 96.9; O2SAT 95
[2018-03-20] MEDS ORDERED: ATORVASTATIN 20 MG TAB PO SCH ×2 (12:30→21:00)
[2018-03-20] MEDS ORDERED: LEVO.1 PO (12:33)
--- NOTE | 2018-03-20 13:20 | ECHRPT ---
Indication: CVA/TIA CONCLUSIONS Normal left ventricular size. Wall thickness is normal. The left ventricular systolic function is low normal with an estimated ejection fraction in the rang e of 50- 55%. Trace mitral valve regurgitation. There is trace tricuspid valve regurgitation. can not rule out apical hypokinesis BP: / HR: Rhythm: MEASUREMENTS (Male / Female) Normal Values Technical Quality: 2D ECHO LV Diastolic Diameter PLAX 4.8 cm 4.2 - 5.9 / 3.9 - 5.3 cm LV Systolic Diameter PLAX 3.7 cm IVS Diastolic Thickness 0.9 cm 0.6 - 1.0 / 0.6 - 0.9 cm LVPW Diastolic Thickness 0.7 cm 0.6 - 1.0 / 0.6 - 0.9 cm LV Relative Wall Thickness 0.3 RV Internal Dim ED PLAX 1.8 cm M-MODE Aortic Root Diameter MM 3.1 cm AV Cusp Separation MM 1.9 cm DOPPLER Mitral E Point Velocity 73.1 cm/s Mitral A Point Velocity 58.7 cm/s Mitral E to A Ratio 1.2 TR Peak Velocity 209.0 cm/s TR Peak Gradient 17.5 mmHg FINDINGS LEFT VENTRICLE Normal left ventricular size. Wall thickness is normal. The left ventricular systolic function is low normal with an estimated ejection fraction in the rang e of 50- 55%. RIGHT VENTRICLE Normal right ventricular size and systolic function. LEFT ATRIUM The left atrial size is normal. RIGHT ATRIUM The right atrial size is normal. ATRIAL SEPTUM Normal atrial septal thickness without atrial level shunting by limited color doppler interrogation. AORTA The aortic root and proximal ascending aorta are normal in size on limited imaging. MITRAL VALVE Trace mitral valve regurgitation. AORTIC VALVE Trileaflet aortic valve. No aortic valve stenosis or regurgitation. TRICUSPID VALVE There is trace tricuspid valve regurgitation. PULMONARY VALVE The pulmonary valve is not well visualized. VESSELS The inferior vena cava is normal in size. PERICARDIUM No pericardial effusion. Juanito Norton MD, FACC, FSCAI (Electronically Signed) Final Date:20 Mar 2018 13:19
[2018-03-20] MEDS ORDERED: PLAV75TA29 PO (14:15)
[2018-03-20] MEDS ORDERED: ASPI325T33 PO (14:15)
[2018-03-20] MEDS ORDERED: ATOR20TA15 PO (14:15)
--- NOTE | 2018-03-20 14:16 | HHI.DCPOC ---
Discharge Care Plan Diagnosis: (1) Transient ischemic attack (TIA) Goals to Promote Your Health * To prevent worsening of your condition and complications * To maintain your health at the optimal level Directions to Meet Your Goals Take your medications as prescribed Follow your dietary instruction Follow activity as directed Keep your appointments as scheduled Take your immunizations and boosters as scheduled If your symptoms worsen call your PCP, if no PCP go to Urgent Care Center or Emergency Room Smoking is Dangerous to Your Health. Avoid second hand smoke Call the 24-hour hour crisis hotline for domestic abuse at Nery Weinberg MD March 20, 2018 14:16
--- NOTE | 2018-03-20 14:20 | HHI.DS ---
Discharge Summary Admission Date March 19, 2018 at 10:42 Discharge Date: March 20, 2018 Admitting Diagnosis TRANSIENT ISCHEMIC ATTACK (1) Transient ischemic attack (TIA) ICD Code: G45.9 - Transient cerebral ischemic attack, unspecified Status: Acute Procedures none Brief History - From Admission This is a pleasant 62-year-old female patient with a known medical history of thyroid disease who presented to the ED with slurring of speech and overall generally feeling "not herself". Patient states that around 8:00 this morning she was having her coffee, actually took a Motrin for complaints of left elbow arthritis aching and shortly after she noticed her speech slurred and drooling on the right side of her mouth. Patient also admits that she kept losing ability to grasp her plate and kept dropping it. Patient called her son to immediately bring her to the ED. Stroke alert was called, neurology at bedside to assess patient. CT was performed and shortly after coming back from CT all symptoms resolved. Patient denies ever having these type of symptoms before. Denies history of hypertension, diabetes or hyperlipidemia. Patient has been relatively healthy, denies any illness including fever, chills, cough, shortness of breath, headache, abdominal pain, nausea, vomiting, diarrhea, dysuria or lightheadedness or dizziness. CBC/BMP: 03/20/18 0620 03/20/18 0620 Significant Findings Laboratory Tests Test 03/19/18 09:10 03/19/18 10:10 03/19/18 10:50 03/20/18 06:20 Lymphocytes (%) (Auto) 45.6 % (9.0-44.0) 45.7 % (9.0-44.0) Monocytes (%) (Auto) 10.7 % (0.0-8.0) Chloride Level 108 MEQ/L (98-107) 109 MEQ/L (98-107) Anion Gap 3 MEQ/L (5-15) 4 MEQ/L (5-15) Estimat Glomerular Filtration Rate 80 ML/MIN (>89) Troponin I LESS THAN 0.02 NG/ML LDL Cholesterol 107 MG/DL (0-99) HDL Cholesterol 76.9 MG/DL (40.0-60.0) Thyroid Stimulating Hormone 3rd Gen 0.193 uIU/ML (0.358-3.740) Imaging Last Impressions Brain MRI 03/19/1850 Signed Impressions: Service Date/Time: Monday, March 19, 2018 11:54 - CONCLUSION: Focal abnormal signal involving an isolated low convexity left frontal gyrus. This could reflect focal cerebritis or late subacute ischemic injury. Jeremy Sheldon MD Neck CTA 03/19/18908 Signed Impressions: Service Date/Time: Monday, March 19, 2018 09:10 - CONCLUSION: Normal examination. Jeremy Sheldon MD Head CTA 03/19/18908 Signed Impressions: Service Date/Time: Monday, March 19, 2018 09:10 - CONCLUSION: Normal examination. Jeremy Sheldon MD Head CT 03/19/18 0000 Signed Impressions: Service Date/Time: Monday, March 19, 2018 09:10 - CONCLUSION: 1. Unremarkable exam. 2. No evidence of acute infarct, hemorrhage, mass or edema. Major Gupta MD Pt update on day of discharge Patient doing well and is back to baseline. Patient reports taking 125 mcg of Synthroid because "that is all I had "although she was prescribed 100 mcg. 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 No issues overnight. Echocardiogram completed. Patient is to start Plavix and continue with her 100 mcg of levothyroxine. Patient's imaging is concerning for old infarcts. Patient will need outpatient loop recorder evaluation this is explained at length to the patient and her son at bedside Hospital Course Patient is a 62-year-old female with an acute onset of neurological dysfunction was resolved spontaneously. Patient was seen by neurology. Imaging were remarkable only for old infarct without any evidence of new infarct. Patient will need to follow-up with her primary ehr trainer and primary care physician up in [place] when she returns in about a week. Pt Condition on Discharge: Good Discharge Disposition: Discharge Home Discharge Time: <= 30 minutes Discharge Instructions DIET: Follow Instructions for: Heart Healthy Diet Activities you can perform: Regular-No Restrictions Follow up Referrals: Cardiology - 2-3 Days with Juanito Norton MD PCP Follow-up New Medications: Levothyroxine (Synthroid) 100 Mcg Tab 100 MCG PO DAILY for Thyroid, #30 TAB [address] (Aspirin EC) 325 Mg Tabdr 325 MG PO DAILY for tia, #5 TAB stop after completed course in order to bridge with plavix Atorvastatin (Atorvastatin) 20 Mg Tab 20 MG PO HS for tia, #31 TAB Clopidogrel (Plavix) 75 Mg Tab 75 MG PO DAILY for tia, #31 TAB Continued Medications: Calcium Carbonate-Cholecalciferol (Calcium 1000 + D) 1,000-800 Mg-Unit Tab 1 TAB PO DAILY, TAB Multiple Vitamin (Multi Vitamin Daily) 1 Tab Tab 1 TAB PO DAILY Discontinued Medications: Aspirin (Aspirin Low Dose) 81 Mg Chew 81 MG CHEW DAILY, TAB 0 Refills Levothyroxine (Synthroid) 125 Mcg Tab 125 MCG PO DAILY for Thyroid, #30 TAB 0 Refills Additional Information Please evaluate for loop recorder Nery Weinberg MD March 20, 2018 14:20
--- NOTE | 2018-03-20 20:43 | MG ---
cc: Dragan Ash MD, David J MD [id number] Left temporal lobe abnormality on MRI. INTERPRETATION: Photic stimulation was performed without significant posterior driving. IMPRESSION: A normal electroencephalogram. No evidence for a focal or diffuse abnormality. Specifically, no left temporal abnormality was seen. No epileptiform or seizure activity was noted. There were no hemisphere asymmetries. Dragan Villarreal. MD TEMI Ash/ , 07:58 PM , 08:42 PM
[2018-03-20 22:10] LABS: ALB/GLOB RATIO (SPE) 1.88 (1.39-2.23)
[2018-03-21 08:39] LABS: METHYLMALONIC ACID 0.11 nmol/mL (<=0.40)
[2018-03-21 14:07] LABS: CARDIOLIPIN IGG AB <9.4 GPL; CARDIOLIPIN IGM AB 10.1 MPL
--- NOTE | 2018-03-21 15:06 | HM ---
Date Performed: 03/19/2018 Time Performed: 14:50:00 HOOKUP DATE: 03/19/18 02:50:00 PM Mon ANALYSIS START TIME: 03/19/2018 2:55:00 PM ANALYSIS END TIME: 03/20/2018 2:41:26 PM PATIENT AGE: 62 PATIENT HEIGHT PATIENT WEIGHT DRUG LIST: room # [id number] patient discharged home PATIENT DIAGNOSIS: STROKE SX TEST NARRATIVE: The patient's average heart rate was 67 BPM. No episodes of tachycardia wer e noted. No episodes of bradycardia were noted. No pauses exceeding 2.0 seconds were noted. 1 ventricular ectopics, which represented < 1% of the total beat count, were noted. The highest vent ricular ectopic frequency occurred from 01:00 AM to 02:00 AM Tue. During this time 1 VE(s) occurred. Ventricular ectopics were observed as 1 isolated beat(s) only. No couplets or runs were noted. 13 supraventricular ectopics, which represented < 1% of the total beat count, were noted. The highe st supraventricular ectopic frequency occurred from 12:00 PM to 01:00 PM Tue. During this time 3 SVE (s) occurred. No episodes of ST depression (defined as -1.0 mm or more) were noted in channel 1. No episodes of ST depression (defined as -1.0 mm or more) were noted in channel 2. No episodes of S T depression (defined as -1.0 mm or more) were noted in channel 3. NO DIARY ENTRIES TEST INTERPRETATION: No diary entries are noted and no significant pauses are present. The under lying rhythm is Sinus rhythm with average rate 67 bpm and range of 51 to 117 bpm. Rare isolated premature atrial and ventricular contractions are seen. Signed by : Jimmy Tavarez
== END 2018-03-20 16:10 | disposition home or self-care (01) | DRG 69 ==
LOC: PHED 09:03 → PHEDA 10:42 → PH3A 12:33
PROVIDERS: ADMIT Hospitalist; ATTEND Hospitalist
DX: G45.9 Transient cerebral ischemic attack, unspecified (principal); E89.0 Postprocedural hypothyroidism; R47.81 Slurred speech; Z79.82 Long term (current) use of aspirin; Z98.84 Bariatric surgery status; Z96.653 Presence of artificial knee joint, bilateral
CPT/HCPCS: 70450; 70496; 70498; 70553; 80048; 80061; 80307; 81001; 81240; 81241; 81291; 82550; 82607; 82746; 83921; 84165; 84207; 84425; 84439; 84443; 84450; 84460; 84484; 84702; 85025; 85240; 85300; 85303; 85306; 85384; 85610; 85613; 85652; 85730; 86038; 86140; 86147; 86592; 86850; 86900; 86901; 93005; 93225; 93226; 93306; 95819; A9579; J7030; Q9967